=== PATIENT | male | born 1990 | race Caucasian/White ===

== ENCOUNTER 2019-01-12 02:11 | Emergency (ER) | payer BC ==
[~2019-01-12] VITALS: Ht 188 cm; Wt 102.1 kg
[2019-01-12 02:16] VITALS: BP 142/85
== END 2019-01-12 04:25 | disposition home or self-care (01) ==
LOC: ER 02:13
DX: S92.002A Unspecified fracture of left calcaneus, initial encounter for closed fracture (principal); S82.202A Unspecified fracture of shaft of left tibia, initial encounter for closed fracture; X58.XXXA Exposure to other specified factors, initial encounter; Y93.89 Activity, other specified; Y92.89 Other specified places as the place of occurrence of the external cause; Y99.8 Other external cause status
CPT/HCPCS: 71111; 73700

== ENCOUNTER → 2019-04-02 | Day surgery (SDC) | payer BC ==
[2019-03-31 12:24] LABS: Basophils # (auto) 0 uL; Basophils % (auto) 0.7 % (0.0-2.0); Eosinophils # (auto) 0.2 uL; Eosinophils % (auto) 2.9 % (0.0-7.0); Hematocrit 49.9 % (41.0-53.0); Hemoglobin 17.3 g/dL (13.5-17.5); Lymphocytes % (auto) 36.4 % (10.0-50.0); Mean Corpuscular Hemoglobin 30.8 pg (28.0-32.0); Mean Corpuscular Hgb Conc. 34.6 g/dL (32.0-36.0); Mean Corpuscular Volume 88.9 fL (80.0-100.0); Monocytes # (auto) 0.5 uL; Monocytes % (auto) 10.2 % (0.0-12.0); Neutrophils # (auto) 2.7 uL; Neutrophils % (auto) 49.8 % (37.0-80.0); Nucleated Red Blood Cells % 0.4 %; Platelet Count (auto) 265 10^3/uL (140-450); Red Blood Cells 5.62 10^6/uL (4.5-5.90); Red Cell Distribution Width 12.9 % (11.8-14.3); Urine Bacteria NONE SEEN /hpf (None Seen); Urine Blood Negative /uL (Negative); Urine Specific Gravity 1.015 (1.001-1.035); Urine WBC 1 /hpf (0 - 3); White Blood Cell 5.4 10^3/uL (4.4-10.8)
[2019-03-31 12:35] LABS: INR 1.13 (0.9-1.15); Partial Thromboplastin Time 29.6 sec (23.64-32.05)
[2019-03-31 13:20] LABS: Potassium 4.2 mmol/L (3.5-5.1)
[2019-03-31 13:33] LABS: Albumin 4.6 g/dL (3.4-5.0); BUN/Creatinine Ratio 10.5; Calcium 9.5 mg/dL (8.5-10.1); Total Protein 8.5 g/dL (6.4-8.2)
[~2019-04-02] VITALS: Ht 188 cm; Wt 108.9 kg
[~2019-04-02] MED LIST: BUPIVACAINE 0.25% INJ 50ML VIAL ONE; BUPIVACAINE HCL 50 ML ONE; HYDROmorphone HCL 2 MG/ML VL IV PRN; KETOROLAC TROMETH 30 MG/ML 1ML VIAL ONE; LIDOCAINE 1% (LOCAL ANESTH.) PF 5ml SDV ONE; LIDOCAINE 1% HCL (LOCAL ANESTH.) INJ 20ML MDV ONE; LIDOCAINE HCL 2% TOP JELLY 5ML TOP ONE; METOCLOPRAMIDE HCL 5MG/ml INJ 2ml VIAL ONE; MIDAZOLAM HCL 1MG/1ML-2 ML VIAL ONE; NALOXONE HCL 0.4 MG/ML VIAL IV PRN; ONDANSETRON HCL 4 MG/2 ML VIAL IV PRN; PROPOFOL 10 MG/ML 20 ML IV ONE; SUCCINYLCHOLINE CHLORIDE 20 MG/ML 10ML VIAL IV ONE; ceFAZolin 1GM/50ML 50 ML IV ONE; fentaNYL CITRATE 100 MCG/2 ML VL ONE
[2019-04-02 16:15] VITALS: BP 125/63
== END | disposition home or self-care (01) ==
LOC: SUR 12:15
PROVIDERS: ATTEND Podiatrist
DX: S92.411A Displaced fracture of proximal phalanx of right great toe, initial encounter for closed fracture (principal); E66.9 Obesity, unspecified; G47.33 Obstructive sleep apnea (adult) (pediatric); Z68.31 Body mass index [BMI] 31.0-31.9, adult; V29.9XXA Motorcycle rider (driver) (passenger) injured in unspecified traffic accident, initial encounter; Y93.89 Activity, other specified; Y92.89 Other specified places as the place of occurrence of the external cause; Y99.8 Other external cause status
CPT/HCPCS: 28505; 36415; 73620; 80053; 81001; 85025; 85610; 85730; C1713; J0330; J0690; J1885; J2001; J2250; J2704; J2765; J3010; J3490; 76000

== ENCOUNTER → 2020-03-31 | Outpatient (CLI) | payer BC | END | disposition home or self-care (01) | LOC: LAB 08:51 | PROVIDERS: ATTEND Nurse Practitioner Family | DX: U07.1 COVID-19 (principal) | CPT/HCPCS: 36415; 87426 ==